=== PATIENT | male | born 2000 | race Caucasian/White ===

== ENCOUNTER 2021-03-14 04:05 | Emergency (ER) | payer OTHER ==
[~2021-03-14] VITALS: Ht 175.3 cm; Wt 77.1 kg
== END 2021-03-14 11:10 | disposition home or self-care (01) ==
LOC: EMR PED 04:05 → ER 04:18 → EMR PED 04:18
DX: R10.9 Unspecified abdominal pain (principal)

== ENCOUNTER 2021-05-29 15:51 | Emergency (ER) | payer OTHER ==
[~2021-05-29] VITALS: Ht 172.7 cm; Wt 72.6 kg
[2021-05-29] MEDS ORDERED: DICY20TA PO (18:44)
[2021-05-29] MEDS ORDERED: PEPCID AC20 MG PO (18:44)
== END 2021-05-29 18:52 | disposition home or self-care (01) ==
LOC: ER 15:51
DX: K80.50 Calculus of bile duct without cholangitis or cholecystitis without obstruction (principal)

== ENCOUNTER 2021-10-06 10:17 | Outpatient (CLI) | payer OTHER ==
[~2021-10-06 10:17] MED LIST: DICY20TA PO; PEPCID AC20 MG PO
== END 2021-10-06 10:45 | disposition home or self-care (01) ==
LOC: SONOGRAMA 10:17
DX: R80.2 Orthostatic proteinuria, unspecified (principal)

== ENCOUNTER 2022-03-25 18:59 | Emergency (ER) | payer OTHER ==
[~2022-03-25] VITALS: Ht 172.7 cm; Wt 79.4 kg
== END 2022-03-26 | disposition home or self-care (01) ==
LOC: ER 18:59
DX: S52.512A Displaced fracture of left radial styloid process, initial encounter for closed fracture (principal); W18.30XA Fall on same level, unspecified, initial encounter; Y93.9 Activity, unspecified; Y92.828 Other wilderness area as the place of occurrence of the external cause; S52.502A Unspecified fracture of the lower end of left radius, initial encounter for closed fracture